=== PATIENT | male | born 1955 | race Caucasian/White ===

== ENCOUNTER 2021-11-14 10:11 | Observation (INO) | payer MEDICARE ==
[2021-11-14] MEDS ORDERED: Bupivacaine PF 0.5% 30 ML VIAL ONE (10:28)
[2021-11-14] MEDS ORDERED: EPINEPHrine 1 MG/ML AMP ONE (10:28)
[2021-11-14] MEDS ORDERED: Thrombin 5000 UNITS/5 ML VIAL ONE ×2 (10:28→15:38)
[2021-11-14] MEDS ORDERED: Neomycin-Polymyxin 1 ML AMP ONE (10:28)
[2021-11-14] MEDS ORDERED: CEFAZOLIN 2 GM VIAL ONE ×2 (11:11→12:08)
[2021-11-14] MEDS ORDERED: Sodium Chloride 0.9% 0 ML ONE (11:11)
[2021-11-14] MEDS ORDERED: Lidocaine 1% MPF 2 ML VIAL ONE ×2 (11:11→12:30)
[2021-11-14] MEDS ORDERED: fentaNYL Citrate/PF 100 MCG/2 ML SYRINGE ONE ×2 (12:07→15:30)
[2021-11-14] MEDS ORDERED: HYDROmorphone 0.5 MG/0.5 ML SYRINGE ONE (12:07)
[2021-11-14] MEDS ORDERED: Sodium Chloride 0.9% 100 ML ONE (12:08)
[2021-11-14] MEDS ORDERED: Phenylephrine 10 MG/ML VIAL ONE ×2 (12:30→16:49)
[2021-11-14] MEDS ORDERED: PROPOFOL 200 MG/20 ML VIAL ONE (12:30)
[2021-11-14] MEDS ORDERED: Vecuronium 10 MG VIAL ONE (12:30)
[2021-11-14] MEDS ORDERED: Glycopyrrolate 0.2 MG/ML 5 ML SYRINGE ONE (12:30)
[2021-11-14] MEDS ORDERED: Dexamethasone 20 MG/5 ML VIAL ONE (12:30)
[2021-11-14] MEDS ORDERED: Neostigmine Methylsulfate 3 MG/3 ML SYRINGE ONE (12:30)
[2021-11-14] MEDS ORDERED: Ondansetron PF 4 MG/2 ML Vial ONE (12:30)
[2021-11-14] MEDS ORDERED: Rocuronium Bromide 10 MG/ML (10ML VIAL) ONE (12:30)
[2021-11-14] MEDS ORDERED: PROPOFOL 20 ML ONE (17:20)
[2021-11-14] MEDS ORDERED: Tamsulosin HCl 0.4 MG CAP ONE (17:40)
[2021-11-14] MEDS ORDERED: Promethazine HCl 25 MG/ML VIAL ONE (17:59)
[2021-11-14] MEDS ORDERED: HYDROcodone/Acetaminophen 7.5/325 mg Tablet PO PRN ×2 (18:30)
[2021-11-14] MEDS ORDERED: Morphine 2 MG/ML VIAL SLOW IVP PRN (18:30)
[2021-11-14] MEDS ORDERED: traMADol HCl 50 MG TAB PO PRN (18:30)
[2021-11-14] MEDS ORDERED: Morphine 4 MG/ML VIAL SLOW IVP PRN (18:30)
[2021-11-14] MEDS ORDERED: diphenhydrAMINE 50 MG/ML VIAL IVP PRN (18:30)
[2021-11-14] MEDS ORDERED: diphenhydrAMINE 25 MG CAP PO PRN (18:30)
[2021-11-14] MEDS ORDERED: HYDROcodone/Acetaminophen 10/325 mg Tablet PO PRN ×2 (18:30)
[2021-11-14] MEDS ORDERED: Prochlorperazine 10 MG/2 ML VIAL IM PRN (18:30)
[2021-11-14] MEDS ORDERED: Ondansetron PF 4 MG/2 ML Vial IM PRN (18:30)
[2021-11-14] MEDS ORDERED: Cyclobenzaprine 10 MG TAB PO PRN (18:30)
[2021-11-14] MEDS ORDERED: Loperamide HCl 2 MG CAP PO PRN (18:30)
[2021-11-14] MEDS ORDERED: Promethazine HCl 25 MG/ML VIAL IVPB PRN (18:36)
[2021-11-14] MEDS ORDERED: Promethazine HCl 25 MG/ML VIAL IM PRN (18:36)
[2021-11-14] MEDS ORDERED: Ondansetron HCl/PF 4 MG/2 ML Vial IVP PRN (18:36)
[2021-11-14] MEDS ORDERED: Chloraseptic Spray 180 ml Bottle PO PRN (19:56)
[2021-11-14 20:42] VITALS: BMI 35.8
[2021-11-14] MEDS: Sodium Chloride 0.9% 1,000 ML IV SCH (20:45)
[2021-11-14] MEDS ORDERED: Atorvastatin Calcium 20 MG TAB PO SCH (21:00)
[2021-11-14] MEDS: Gabapentin 300 MG CAP PO SCH (21:12)
[2021-11-14] MEDS: tiZANidine HCl 4 MG TAB PO PRN (21:12)
[2021-11-14] MEDS: traMADol HCl 50 MG TAB PO PRN (21:13)
[2021-11-14] MEDS: Metoprolol Tartrate 50 MG TAB PO SCH (21:13)
[2021-11-15] MEDS ORDERED: Tamsulosin HCl 0.4 MG CAP PO SCH (06:00)
[2021-11-15] MEDS: Sodium Chloride 0.9% 1,000 ML IV SCH (07:37)
[2021-11-15] MEDS: Gabapentin 300 MG CAP PO SCH (08:16)
[2021-11-15] MEDS: Metoprolol Tartrate 50 MG TAB PO SCH (08:20)
[2021-11-15] MEDS ORDERED: CeleCOXIB 100 MG CAP PO SCH (09:00)
[2021-11-15] MEDS ORDERED: Triamterene/Hydrochlorothiazide 37.5 mg/25 mg Tablet PO SCH (09:00)
[2021-11-15 12:03] VITALS: BP 112/70; TEMP 98.2
[2021-11-15] MEDS: tiZANidine HCl 4 MG TAB PO PRN (13:08)
[2021-11-15] MEDS: traMADol HCl 50 MG TAB PO PRN (13:08)
== END 2021-11-15 14:30 | disposition home or self-care (01) ==
LOC: SDC 10:11 → SJJU 18:08
PROVIDERS: ADMIT Neurological Surgery; ATTEND Neurological Surgery
PROC: 01NB0ZZ Release Lumbar Nerve, Open Approach (ICD-10-PCS; principal; 2021-11-14)
PROC: 0SB20ZZ Excision of Lumbar Vertebral Disc, Open Approach (ICD-10-PCS; 2021-11-14)
DX: M48.062 Spinal stenosis, lumbar region with neurogenic claudication (principal); M51.16 Intervertebral disc disorders with radiculopathy, lumbar region; R33.9 Retention of urine, unspecified; M19.90 Unspecified osteoarthritis, unspecified site; E78.00 Pure hypercholesterolemia, unspecified; I11.9 Hypertensive heart disease without heart failure; I25.10 Atherosclerotic heart disease of native coronary artery without angina pectoris; I48.91 Unspecified atrial fibrillation; I25.2 Old myocardial infarction; G47.30 Sleep apnea, unspecified; G25.81 Restless legs syndrome; Z79.01 Long term (current) use of anticoagulants; Z79.899 Other long term (current) drug therapy; Z88.5 Allergy status to narcotic agent; Z88.8 Allergy status to other drugs, medicaments and biological substances; Z95.0 Presence of cardiac pacemaker; Z95.5 Presence of coronary angioplasty implant and graft
CPT/HCPCS: 63047; 63048; 76000; G0378 ×2; J0171; J0690; J1100; J1170; J2370; J2405; J2550; J2704; J3370; J3490; J7050; S0020